=== PATIENT | female | born 1950 | race Caucasian/White ===

== ENCOUNTER → 2017-04-09 | Outpatient (CLI) | payer MEDICARE ==
[~2017-04-09] MED LIST: ASCO-96 PO; ASPI-496 PO; CALC-173 PO; CELE200C PO; CINN500C2 PO; DIAZ5TAB PO; DOCU-131 PO; DOCU100T6 PO; FERR325T18 PO; FISH1CAP PO; GLUC1TAB27 PO; HYDR-3307 PO; IRON18TA PO; LEVO175T5 PO; METH500C3 PO; METO50TA82 PO; MULT1TAB60 PO; ONDA4TAB10 PO; OXYC5CAP2 PO; POTA99TA14 PO; RED600CA2 PO; TRAM50TA2 PO; UBID100C24 PO; VITA100C8 PO
[2017-04-09 11:30] LABS: BASOPHILS # (AUTO) 0.03 x10^3/uL (0-0.1); BASOPHILS % (AUTO) 0 % (0-1); EOSINOPHILS % (AUTO) 2 % (1-7); LYMPHOCYTES # (AUTO) 1.62 x10^3/uL (1-3.4); LYMPHOCYTES % (AUTO) 24 % (22-44); MD NO; MEAN CORPUSCULAR HGB CONC 33.3 g/dL (32.4-35.8); MEAN CORPUSCULAR VOLUME 93.1 fL (80-100); MEAN PLATELET VOLUME 7.9 fL (7.4-10.4); MONOCYTES % (AUTO) 9 % (2-9); NEUTROPHILS # (AUTO) 4.47 x10^3/uL (1.8-6.8); NEUTROPHILS % (AUTO) 66 % (42-75); PLATELET COUNT 213 x10^3/uL (130-400); RED BLOOD COUNT 4.77 x10^6/uL (3.82-5.3); RED CELL DISTRIBUTION WIDTH 12.7 % (9.6-15.2)
[2017-04-09 11:38] LABS: ALANINE AMINOTRANSFERASE 22 U/L (12-78); ALBUMIN 4.3 g/dL (3.4-5.0); ANION GAP 7 mmol/L (5-15); CALCIUM 9.1 mg/dL (8.5-10.1); CHLORIDE 106 mmol/L (98-107)
[2017-04-09 11:41] LABS: ALKALINE PHOSPHATASE 74 U/L (45-117); BILIRUBIN,TOTAL 0.6 mg/dL (0.2-1.0); CREATININE 1.11 mg/dL (0.55-1.02); TOTAL PROTEIN 7.7 g/dL (6.4-8.2)
[2017-04-09 11:46] LABS: INTERNATIONAL NORMALIZED RATIO 0.95 (0.93-1.1); PROTHROMBIN TIME 9.9 Seconds (9.6-11.5)
[2017-04-09 12:38] LABS: HEMOGLOBIN A1C 5.6 % (4.2-6.3)
== END | disposition home or self-care (01) ==
LOC: STAR 09:46
PROVIDERS: ATTEND Orthopaedic Surgery
DX: Z01.818 Encounter for other preprocedural examination (principal); M16.11 Unilateral primary osteoarthritis, right hip; Z79.899 Other long term (current) drug therapy; R79.89 Other specified abnormal findings of blood chemistry
CPT/HCPCS: 36415; 71046; 80053; 83036; 85025; 85610; 85730; 86703; 87081; 87899; 93005; G0435

== ENCOUNTER 2017-04-20 09:04 | Inpatient (IN) | payer MEDICARE ==
[~2017-04-20] VITALS: Ht 162.6 cm; Wt 87.9 kg
[~2017-04-20 09:04] MED LIST changes: -CELE200C PO; -DIAZ5TAB PO; -DOCU-131 PO; -HYDR-3307 PO; -ONDA4TAB10 PO; -OXYC5CAP2 PO; -TRAM50TA2 PO
[2017-04-20] MEDS ORDERED: LACTATED RINGERS 1,000 ML IV SCH (09:58)
[2017-04-20] MEDS ORDERED: GABAPENTIN 300 MG CAPSULE PO ONE (10:00)
[2017-04-20] MEDS ORDERED: ACETAMINOPHEN 500 MG TABLET PO ONE (10:00)
[2017-04-20] MEDS ORDERED: VANCOMYCIN PER PHARMACY MC PRN (10:00)
[2017-04-20] MEDS ORDERED: ACETAMINOPHEN 500 MG TABLET ONE (10:02)
[2017-04-20] MEDS ORDERED: GABAPENTIN 300 MG CAPSULE ONE (10:02)
[2017-04-20] MEDS ORDERED: ALBUTEROL SULFATE 2.5 MG/3 ML NPPB PRN ×2 (10:30→16:30)
[2017-04-20] MEDS ORDERED: VANCOMYCIN 1,600 MG in SODIUM CHLORIDE 0.9% 250 ML IV ONE (10:30)
[2017-04-20] MEDS ORDERED: HYDROmorphone 1 MG/ML, 1ML IV PRN ×2 (10:30→11:30)
[2017-04-20] MEDS ORDERED: EPHEDRINE 50 MG/ML, 1ML IVPush PRN (10:30)
[2017-04-20] MEDS ORDERED: hydrALAzine 20 MG/ML, 1ML IV PRN (10:30)
[2017-04-20] MEDS ORDERED: LABETALOL 5MG/ML, 20ML IV PRN (10:30)
[2017-04-20] MEDS ORDERED: OXYcodone 5 MG/5 ML ORAL.SOL UDC PO PRN (10:30)
[2017-04-20] MEDS ORDERED: ACETAMINOPHEN 325 MG TABLET PO PRN (10:30)
[2017-04-20] MEDS ORDERED: METOPROLOL 1 MG/ML, 5ML IV PRN (10:30)
[2017-04-20] MEDS ORDERED: ONDANSETRON 2MG/ML, 2ML IVPush PRN (10:30)
[2017-04-20 10:33] VITALS: BP 130/77
[2017-04-20] MEDS ORDERED: HYDROmorphone 2 MG/ML, 1ML ONE ×2 (10:46→13:33)
[2017-04-20] MEDS ORDERED: FENTANYL PF 250 MCG/5ML ONE (10:46)
[2017-04-20] MEDS ORDERED: MIDAZOLAM 1 MG/ML, 2ML ONE (10:46)
[2017-04-20] MEDS ORDERED: KETOROLAC 60 MG/2 ML ONE (11:11)
[2017-04-20] MEDS ORDERED: TRANEXAMIC ACID 100 MG/ML, 10ML ONE ×4 (11:11)
[2017-04-20] MEDS ORDERED: SODIUM CHLORIDE 0.9% 100 ML ONE (11:11)
[2017-04-20] MEDS ORDERED: EPINEPHRINE 1 MG/ML, 1ML ONE (11:12)
[2017-04-20] MEDS ORDERED: ROPivacaine/PF 0.2%, 10 ML ONE (11:21)
[2017-04-20] MEDS ORDERED: GLYCOPYRROLATE 0.2MG/1ML, 5ML ONE (11:27)
[2017-04-20] MEDS ORDERED: NEOSTIGMINE 1 MG/ML, 10ML ONE (11:27)
[2017-04-20] MEDS ORDERED: MAGNESIUM HYDROXIDE 8%, 30ML UDC PO PRN (11:30)
[2017-04-20] MEDS ORDERED: ONDANSETRON 2MG/ML, 2ML IV PRN (11:30)
[2017-04-20] MEDS ORDERED: DIAZEPAM 5 MG TABLET PO PRN (11:30)
[2017-04-20] MEDS ORDERED: ACETAMINOPHEN 650 MG/20.3 ML UDC PO PRN (11:30)
[2017-04-20] MEDS ORDERED: ALUMINUM/MAG/SIMETHICONE 30 ML UDC PO PRN (11:30)
[2017-04-20] MEDS ORDERED: ONDANSETRON 4 MG TABLET PO PRN (11:30)
[2017-04-20] MEDS ORDERED: SENNA/DOCUSATE TABLET PO PRN (11:30)
[2017-04-20] MEDS ORDERED: DIPHENHYDRAMINE 25 MG CAPSULE PO PRN (11:30)
[2017-04-20] MEDS ORDERED: ONDANSETRON 2MG/ML, 2ML ONE (11:47)
[2017-04-20] MEDS ORDERED: CEFAZOLIN 1,000 MG ONE ×2 (11:47)
[2017-04-20] MEDS ORDERED: ROCURONIUM 10 MG/ML,10ML ONE (11:47)
[2017-04-20] MEDS ORDERED: PROPOFOL 10 MG/ML, 20ML ONE (11:47)
[2017-04-20] MEDS ORDERED: TRANEXAMIC ACID 1,000 MG in SODIUM CHLORIDE 0.9% 100 ML IVPB ONE (13:11)
[2017-04-20] MEDS ORDERED: FENTANYL PF 100 MCG/2ML ONE (13:33)
[2017-04-20] MEDS: FENTANYL PF 100 MCG/2ML IV PRN ×2 (13:35→13:43)
[2017-04-20 14:56] VITALS: BP 160/90
[2017-04-20] MEDS: D5%-0.45NACL+KCL 20MEQ 1,000 ML IV SCH (17:08)
[2017-04-20] MEDS: ASPIRIN 81 MG TABLET EC PO SCH (17:08)
[2017-04-20] MEDS: HYDROcodone/APAP 10/325 MG TABLET PO PRN (17:08)
[2017-04-20] MEDS: METOPROLOL TARTRATE 50 MG TABLET PO SCH (17:10)
[2017-04-20] MEDS: CEFAZOLIN PMX 1GM/50ML 50 ML IVPB SCH (19:56)
[2017-04-20 20:09] VITALS: BP 127/66
[2017-04-20 23:29] VITALS: BP 156/77
[2017-04-21] MEDS: HYDROcodone/APAP 10/325 MG TABLET PO PRN ×3 (00:20→08:27)
[2017-04-21] MEDS: DOCUSATE 100 MG CAPSULE PO SCH ×2 (00:20→08:27)
[2017-04-21] MEDS: CEFAZOLIN PMX 1GM/50ML 50 ML IVPB SCH (03:30)
[2017-04-21] MEDS: D5%-0.45NACL+KCL 20MEQ 1,000 ML IV SCH ×2 (03:45→10:39)
[2017-04-21 03:52] VITALS: BP 129/72
[2017-04-21] MEDS: METOPROLOL TARTRATE 50 MG TABLET PO SCH (05:58)
[2017-04-21] MEDS: ASPIRIN 81 MG TABLET EC PO SCH (05:58)
[2017-04-21] MEDS ORDERED: DEXAMETHASONE 4 MG/ML, 1ML IVPush SCH (06:00)
[2017-04-21] MEDS ORDERED: LEVOTHYROXINE 175 MCG TABLET PO SCH (07:00)
[2017-04-21 07:56] VITALS: BP 132/60
[2017-04-21] MEDS: TAMSULOSIN 0.4 MG CAP.ER.24H PO SCH ×2 (08:27→08:30)
[2017-04-21] MEDS ORDERED: FERROUS SULFATE 325 MG TABLET PO SCH (09:00)
[2017-04-21] MEDS ORDERED: FLU VACC QS2017-18 (36MOS+) UP/PF 0.5 ML IM-VACC ONE (10:00)
[2017-04-21] MEDS ORDERED: PNEUMOCOCCAL 23 VACCINE IM-VACC ONE (10:00)
[2017-04-21] MEDS ORDERED: ASPI-496 PO (11:24)
[2017-04-21] MEDS ORDERED: DOCU-131 PO (11:25)
[2017-04-21] MEDS ORDERED: ONDA4TAB10 PO (11:25)
[2017-04-21] MEDS ORDERED: CELE200C PO (11:25)
[2017-04-21] MEDS ORDERED: TRAM50TA2 PO (11:26)
[2017-04-21] MEDS ORDERED: DIAZ5TAB PO (11:26)
[2017-04-21] MEDS ORDERED: OXYC5CAP2 PO (11:27)
[2017-04-21] MEDS ORDERED: KETOROLAC 30 MG/1 ML IV SCH (11:30)
[2017-04-21] MEDS ORDERED: HYDR-3307 PO (11:35)
== END 2017-04-21 11:50 | disposition home or self-care (01) | DRG 470 ==
LOC: ORIP 09:04 → 4NOR 14:48 → DCLOUNGE 04-21 11:30
PROVIDERS: ADMIT Orthopaedic Surgery; ATTEND Orthopaedic Surgery
PROC: 0SR902Z Replacement of Right Hip Joint with Metal on Polyethylene Synthetic Substitute, Open Approach (ICD-10-PCS; principal; 2017-04-20 11:30)
DX: M87.851 Other osteonecrosis, right femur (principal); Z99.81 Dependence on supplemental oxygen; J44.9 Chronic obstructive pulmonary disease, unspecified; I10 Essential (primary) hypertension; M21.70 Unequal limb length (acquired), unspecified site; M16.11 Unilateral primary osteoarthritis, right hip
CPT/HCPCS: 36415; 72170; 85014; 85018; 90686; 90732; C1713; J0171; J0690; J1100; J1170; J1885; J2250; J2405; J2704; J2710; J2795; J3010; J3370; J3490; C1776; J3480; J7050; J7120